=== PATIENT | male | born 1960 | race African-American/Black ===

== ENCOUNTER 2022-06-13 04:09 | Emergency (ER) | payer MEDICARE ==
[~2022-06-13] VITALS: Ht 170.2 cm; Wt 92.9 kg
[2022-06-13 04:18] VITALS: BP 143/68
== END 2022-06-13 06:30 | disposition home or self-care (01) ==
LOC: ER 04:09
DX: T82.838A Hemorrhage due to vascular prosthetic devices, implants and grafts, initial encounter (principal); Y84.1 Kidney dialysis as the cause of abnormal reaction of the patient, or of later complication, without mention of misadventure at the time of the procedure; Y92.9 Unspecified place or not applicable; E11.22 Type 2 diabetes mellitus with diabetic chronic kidney disease; N18.6 End stage renal disease; Z99.2 Dependence on renal dialysis
CPT/HCPCS: 99281

== ENCOUNTER 2022-06-25 04:54 | Emergency (ER) | payer MEDICARE ==
[~2022-06-25] VITALS: Ht 182.9 cm; Wt 93.0 kg
[2022-06-25] MEDS ORDERED: LIDOCAINE HCL/PF 1% 10 MG/ML 5ML VIAL INFIL ONE (05:15)
[2022-06-25 05:52] LABS: BASOPHILS % 1.4 % (0.0-2.0); EOSINOPHILS % 2.1 % (0.0-5.0); HEMATOCRIT. 29.7 % (42.0-52.0); HEMOGLOBIN. 10.3 g/dL (14.0-18.0); LYMPHOCYTES % 28.3 % (20.0-50.0); MEAN CORPUSCULAR HEMOGLOBIN 32.4 pg (28.0-32.0); MEAN CORPUSCULAR VOLUME 93.6 fL (80.0-94.0); MEAN PLATELET VOLUME 8.6 fl (7.4-10.4); MONOCYTES % 6.4 % (2.0-8.0); NEUTROPHILS % 61.8 % (40.0-76.0); PLATELET 233 x1000/uL (130-400); RED BLOOD CELL COUNT 3.17 mill/uL (4.7-6.1)
[2022-06-25 06:00] LABS: CHLORIDE 102 mEq/L (98-107)
[2022-06-25 06:09] LABS: INR 0.9; PROTHROMBIN TIME 9.8 sec (9.6-11.0)
[2022-06-25 06:45] VITALS: BP 140/77
== END 2022-06-25 07:32 | disposition home or self-care (01) ==
LOC: ER 04:54
DX: T82.838A Hemorrhage due to vascular prosthetic devices, implants and grafts, initial encounter (principal); E10.22 Type 1 diabetes mellitus with diabetic chronic kidney disease; N18.6 End stage renal disease; Z99.2 Dependence on renal dialysis; Y84.1 Kidney dialysis as the cause of abnormal reaction of the patient, or of later complication, without mention of misadventure at the time of the procedure; Y92.89 Other specified places as the place of occurrence of the external cause
CPT/HCPCS: 12001; 36415; 80053; 85025; 85610; 86850; 86900; 86901; 99283; J3490

== ENCOUNTER 2022-07-09 04:51 | Inpatient (IN) | payer MEDICARE ==
[~2022-07-09] VITALS: Ht 170.2 cm; Wt 93.9 kg
[2022-07-09 09:54] LABS: BASOPHILS % 0.7 % (0.0-2.0); EOSINOPHILS % 2.1 % (0.0-5.0); HEMATOCRIT. 22.6 % (42.0-52.0); HEMOGLOBIN. 7.6 g/dL (14.0-18.0); LYMPHOCYTES % 21.4 % (20.0-50.0); MEAN CORPUSCULAR HEMOGLOBIN 31.9 pg (28.0-32.0); MEAN CORPUSCULAR VOLUME 94.9 fL (80.0-94.0); MONOCYTES % 5.7 % (2.0-8.0); NEUTROPHILS % 70.1 % (40.0-76.0); PLATELET 232 x1000/uL (130-400); RED BLOOD CELL COUNT 2.38 mill/uL (4.7-6.1); RED CELL DISTRIBUTION WIDTH 16.7 % (11.6-14.6)
[2022-07-09 09:55] LABS: CHLORIDE 106 mEq/L (98-107)
[2022-07-09 09:59] LABS: INR 0.9; PROTHROMBIN TIME 10.2 sec (9.6-11.0)
[2022-07-09] MEDS ORDERED: IPRATROPIUM/ALBUTEROL 0.5-3(2.5)MG/3ML NEB NEB PRN (11:45)
[2022-07-09] MEDS ORDERED: GUAIFENESIN 200MG/10ML SUGAR FREE UDC PO PRN (11:45)
[2022-07-09] MEDS ORDERED: TRAMADOL 50MG TABLET PO PRN (11:45)
[2022-07-09] MEDS ORDERED: NITROGLYCERIN 0.4MG TABLET SL SL PRN (11:45)
[2022-07-09] MEDS ORDERED: ONDANSETRON HCL 4MG/2ML INJ IV PRN (11:45)
[2022-07-09] MEDS ORDERED: DOCUSATE SODIUM 100MG CAPSULE PO PRN (11:45)
[2022-07-09] MEDS ORDERED: ACETAMINOPHEN 325MG TABLET PO PRN ×2 (11:45)
[2022-07-09] MEDS ORDERED: ZOLPIDEM TARTRATE 5MG TABLET PO PRN (11:45)
[2022-07-09] MEDS ORDERED: MAGNESIUM/ALUMINUM HYDROXIDE/SIMETHICONE 30ML UDC PO PRN (11:45)
[2022-07-09] MEDS ORDERED: CLONIDINE 0.1MG TABLET PO PRN (11:45)
[2022-07-09] MEDS: SEVELAMER CARBONATE 800 MG TABLET PO SCH ×2 (13:58→18:23)
[2022-07-09] MEDS ORDERED: NALOXONE HCL 0.4MG/ML VIAL IV PRN (18:45)
[2022-07-09 20:00] VITALS: BP 153/75
[2022-07-09] MEDS ORDERED: EPOETIN ALFA 4000UNITS/ML VIAL SUBCUT SCH (21:00)
[2022-07-09] MEDS ORDERED: DEXTROSE 50% WATER 50ML SYRINGE IV PRN (21:00)
[2022-07-09] MEDS ORDERED: INSU100I41 SQ (21:14)
[2022-07-09] MEDS ORDERED: SEVE800T8 PO (21:14)
[2022-07-09] MEDS ORDERED: METO-539 PO (21:14)
[2022-07-09] MEDS ORDERED: FOLI0.8T7 PO (21:14)
[2022-07-09] MEDS ORDERED: INSU100I28 SQ (21:14)
[2022-07-09] MEDS ORDERED: NIFE90TA60 PO (21:14)
[2022-07-09] MEDS ORDERED: ASPI-1406 PO (21:14)
[2022-07-09] MEDS: BLOOD SUGAR DIAGNOSTIC STRIP TEST SCH (21:24)
[2022-07-09] MEDS: FAMOTIDINE 20MG TABLET PO SCH (21:33)
[2022-07-09] MEDS: INSULIN LISPRO 100 UNITS/ML SUBCUT SCH (21:34)
[2022-07-09 21:46] LABS: CREATINE KINASE 132 IU/L (39-308); CREATINE KINASE MB FRACTION < 1.0 ng/mL (0.5-3.6)
[2022-07-10] VITALS (7 sets, daily range): BP systolic 125–142; BP diastolic 60–79
[2022-07-10] MEDS: BLOOD SUGAR DIAGNOSTIC STRIP TEST SCH ×4 (06:32→21:39)
[2022-07-10] MEDS ORDERED: HEPARIN SODIUM 1,000 UNIT/1ML VIAL IV ONE (07:19)
[2022-07-10] MEDS ORDERED: THROMBIN (BOVINE) 5000 UNITS/VIAL TOP ONE (07:19)
[2022-07-10] MEDS ORDERED: BACITRACIN 15GM TUBE TOP ONE (07:20)
[2022-07-10] MEDS ORDERED: POLYMYXIN B SULFATE 500000 UNITS/VIAL ONE (07:20)
[2022-07-10] MEDS: SEVELAMER CARBONATE 800 MG TABLET PO SCH ×3 (07:50→18:46)
[2022-07-10] MEDS: INSULIN LISPRO 100 UNITS/ML SUBCUT SCH ×4 (07:50→21:43)
[2022-07-10] MEDS: FAMOTIDINE 20MG TABLET PO SCH ×2 (08:54→21:42)
[2022-07-10] MEDS ORDERED: LIDOCAINE HCL/PF 2% 20MG/ML 5 ML/VIAL ONE (09:28)
[2022-07-10] MEDS ORDERED: LIDOCAINE HCL 1% 10 MG/ML 10ML VIAL ONE ×2 (12:28→12:57)
[2022-07-10] MEDS ORDERED: MORPHINE SULFATE 4 MG/ML CPJ (NOT FOR IM USE) IV PRN (12:30)
[2022-07-10] MEDS ORDERED: BUPIVACAINE HCL/PF 0.25% (2.5MG/ML) 10ML ONE (12:55)
[2022-07-10] MEDS ORDERED: DEXAMETHASONE 4MG/ML 1ML VIAL ONE (12:57)
[2022-07-10] MEDS ORDERED: FENTANYL CITRATE/PF 50MCG/ML 5ML VIAL ONE (12:57)
[2022-07-10] MEDS ORDERED: PROPOFOL 200MG/20ML VIAL IV ONE (12:57)
[2022-07-10] MEDS ORDERED: MIDAZOLAM HCL 2 MG/2 ML VIAL ONE (12:58)
[2022-07-10] MEDS ORDERED: ONDANSETRON HCL 4MG/2ML INJ IV PRN (13:30)
[2022-07-10] MEDS ORDERED: LABETALOL 5MG/ML SYR 20 MG/4 ML SYRINGE IV PRN (13:30)
[2022-07-10] MEDS ORDERED: HYDROMORPHONE HCL/PF 2MG/ML CPJ IV PRN (13:30)
[2022-07-10] MEDS ORDERED: MEPERIDINE HCL/PF 25MG/ML CPJ IV PRN (13:30)
[2022-07-10 18:37] LABS: HEPATITIS B SURFACE ANTIGEN NEGATIVE
[2022-07-10 21:05] LABS: BASOPHILS % 0.8 % (0.0-2.0); EOSINOPHILS % 1.3 % (0.0-5.0); HEMATOCRIT. 25.4 % (42.0-52.0); HEMOGLOBIN. 8.8 g/dL (14.0-18.0); LYMPHOCYTES % 18.8 % (20.0-50.0); MEAN CORPUSCULAR HEMOGLOBIN 32.1 pg (28.0-32.0); MEAN CORPUSCULAR VOLUME 92.6 fL (80.0-94.0); MEAN PLATELET VOLUME 8.1 fl (7.4-10.4); MONOCYTES % 5.8 % (2.0-8.0); NEUTROPHILS % 73.3 % (40.0-76.0); PLATELET 215 x1000/uL (130-400); RED BLOOD CELL COUNT 2.74 mill/uL (4.7-6.1); RED CELL DISTRIBUTION WIDTH 18.3 % (11.6-14.6)
[2022-07-11] VITALS: BP 117/72
[2022-07-11 04:00] VITALS: BP 113/48
[2022-07-11] MEDS: BLOOD SUGAR DIAGNOSTIC STRIP TEST SCH (07:42)
[2022-07-11] MEDS: INSULIN LISPRO 100 UNITS/ML SUBCUT SCH (07:50)
[2022-07-11 08:00] VITALS: BP 112/56
[2022-07-11] MEDS: SEVELAMER CARBONATE 800 MG TABLET PO SCH (09:13)
[2022-07-11] MEDS: FAMOTIDINE 20MG TABLET PO SCH (09:13)
[2022-07-11 10:33] VITALS: BP 112/56
== END 2022-07-11 11:36 | disposition home or self-care (01) | DRG 981 ==
LOC: ER 04:51 → 6WST 08:43 → EDBEDREQSVC 08:45 → EDBEDREQ 08:45 → EDBEDREQTM 08:47 → SUPCPDRO 11:45 → EDBEDREQSVC 15:03 → ER 19:49
PROVIDERS: ADMIT Internal Medicine; ATTEND Internal Medicine
PROC: 0XQ9XZZ Repair Left Upper Arm, External Approach (ICD-10-PCS; principal; 2022-07-10)
PROC: 30233N1 Transfusion of Nonautologous Red Blood Cells into Peripheral Vein, Percutaneous Approach (ICD-10-PCS; 2022-07-10)
PROC: 5A1D70Z Performance of Urinary Filtration, Intermittent, Less than 6 Hours Per Day (ICD-10-PCS; 2022-07-10)
DX: T82.838A Hemorrhage due to vascular prosthetic devices, implants and grafts, initial encounter (principal); N18.6 End stage renal disease; D62 Acute posthemorrhagic anemia; N25.81 Secondary hyperparathyroidism of renal origin; I12.0 Hypertensive chronic kidney disease with stage 5 chronic kidney disease or end stage renal disease; S41.112A Laceration without foreign body of left upper arm, initial encounter; E11.22 Type 2 diabetes mellitus with diabetic chronic kidney disease; E11.65 Type 2 diabetes mellitus with hyperglycemia; Z20.822 Contact with and (suspected) exposure to COVID-19; Z99.2 Dependence on renal dialysis; Z91.15 Patient's noncompliance with renal dialysis; Y83.2 Surgical operation with anastomosis, bypass or graft as the cause of abnormal reaction of the patient, or of later complication, without mention of misadventure at the time of the procedure; Y92.89 Other specified places as the place of occurrence of the external cause
CPT/HCPCS: 36415; 80048; 80053; 80061; 82550; 82553; 82962; 83036; 84484; 85025; 86705; 86709; 86803; 86850; 86900; 86920; 87340; 87426; 93970; 99291; J0885; J1100; J1644; J1815; J2250; J2704; J3010; J3490; P9016